=== PATIENT | female | born 1990 | race Caucasian/White ===

== ENCOUNTER 2017-05-12 16:56 | Emergency (ER) | payer OTHER ==
[~2017-05-12] VITALS: Ht 160 cm; Wt 61.4 kg
[~2017-05-12 16:56] MED LIST: ETON1VAG INTUTE; OXYC-302 PO; POLY17PO5 PO
[2017-05-12 16:57] VITALS: BP 137/97
== END 2017-05-12 18:46 | disposition home or self-care (01) ==
LOC: ED 18:32
DX: R07.89 Other chest pain (principal); M94.0 Chondrocostal junction syndrome [Tietze]
CPT/HCPCS: 71020; 93005; 99284